=== PATIENT | male | born 1965 | race Caucasian/White ===

== ENCOUNTER 2021-09-26 04:39 | Day surgery (SDC) | payer OTHER ==
[2021-09-24 14:34] VITALS: BMI 34.2
[2021-09-26] MEDS ORDERED: PROPOFOL 20 ML ONE (15:08)
[2021-09-26] MEDS ORDERED: LIDOCAINE HCL 2% (20ML MULTI-DOSE VIAL) ONE (15:25)
[2021-09-26] MEDS ORDERED: LACTATED RINGERS SOLUTION 1,000 ML IV SCH (15:30)
[2021-09-26] MEDS ORDERED: ceFAZolin SODIUM 1 GM VIAL IVPB ONE (15:45)
[2021-09-26] MEDS ORDERED: ceFAZolin SODIUM 1 GM VIAL ONE (15:48)
[2021-09-26] MEDS ORDERED: DEXAMETHASONE SOD PHOSPHATE 4 MG/1 ML VIAL ONE (15:56)
[2021-09-26] MEDS ORDERED: ALBUTEROL SO4 HFA INHALER IH ONE (15:58)
[2021-09-26] MEDS ORDERED: LIDOCAINE HCL 2% (50ML VIAL) NR ONE (16:32)
[2021-09-26] MEDS ORDERED: BACITRACIN 15 GM TUBE TOPICAL OINTMENT TP ONE (16:33)
[2021-09-26] MEDS ORDERED: ALBUTEROL SO4 0.083% IH SOL 2.5 MG/3 ML VIAL.NEB. NEB PRN (16:50)
[2021-09-26 19:09] VITALS: BP 133/85; PULSE 83; TEMP 97.8
== END 2021-09-26 19:10 | disposition home or self-care (01) ==
LOC: JASU-SURG 04:39
PROVIDERS: ATTEND Urology
PROC: 0VTTXZZ Resection of Prepuce, External Approach (ICD-10-PCS; principal; 2021-09-26 15:00)
DX: N47.1 Phimosis (principal)
CPT/HCPCS: 88304-TC; 94760